=== PATIENT | female | born 1960 | race African-American/Black ===

== ENCOUNTER 2018-11-16 12:53 | Emergency (ER) | payer BC ==
[~2018-11-16] VITALS: Ht 157.5 cm; Wt 68.0 kg
[~2018-11-16 12:53] MED LIST: AVAPRO75 MG PO; FELODIPINE ER10 MG PO; HYDROCHLOROTH12.5 M1 PO
[2018-11-16 15:33] LABS: ABSOLUTE NEUTROPHILS 4.6 thou/uL (1.4-8.2); BASOPHILS 0.7 % (0.0-2.0); EOSINOPHILS 2.7 % (0.0-3.0); HEMATOCRIT 40.5 % (37.0-47.0); HEMOGLOBIN 13.6 gm/dL (12.0-15.0); LYMPHOCYTES 36.2 % (24.0-44.0); MCH 29.7 pg (26.0-34.0); MCHC 33.6 g/dL (28.0-37.0); MCV 88.5 fL (80.0-100.0); MONOCYTES 8.9 % (1.0-8.0); PLATELET COUNT 253 thou/uL (150-400); POLYS 51.5 % (36.0-66.0); RBC 4.58 mil/uL (4.20-5.00)
[2018-11-16 15:45] LABS: CALCIUM 9.5 mg/dL (8.5-10.1); CREATININE 0.8 mg/dL (0.6-1.0); POTASSIUM 3.8 mmol/L (3.5-5.1)
[2018-11-16 15:49] LABS: URINE BILIRUBIN NEGATIVE (Negative); URINE BLOOD NEGATIVE (Negative); URINE CLARITY CLEAR; URINE GLUCOSE-RANDOM* NEGATIVE (Negative); URINE KETONES TRACE (Negative); URINE LEUKOCYTES-REFLEX NEGATIVE (Negative); URINE NITRITE-REFLEX NEGATIVE (Negative); URINE PROTEIN (DIPSTICK) NEGATIVE (Negative); URINE SPECIFIC GRAVITY >= 1.030 (1.005-1.035)
[2018-11-16 15:50] LABS: URINE COLOR DK YELLOW
[2018-11-16 15:51] LABS: ALBUMIN 3.6 g/dL (3.4-5.0); DIRECT BILIRUBIN 0.2 mg/dL (<0.1-0.3); TOTAL BILIRUBIN 0.7 mg/dL (<0.1-1.0); TOTAL PROTEIN 7.7 g/dL (6.4-8.2)
[2018-11-16] MEDS ORDERED: CIPROFLOXACIN500 M1 PO (17:27)
[2018-11-16] MEDS ORDERED: FLAGYL500 M1 PO (17:27)
[2018-11-16] MEDS ORDERED: ULTRAM 50MG TAB50 MG PO (17:31)
[2018-11-16 18:53] VITALS: BP 135/70
== END 2018-11-16 18:55 | disposition home or self-care (01) ==
LOC: ER 12:53
PROVIDERS: Emergency Medicine
DX: K57.32 Diverticulitis of large intestine without perforation or abscess without bleeding (principal); I10 Essential (primary) hypertension; Z87.891 Personal history of nicotine dependence